=== PATIENT | male | born 1995 | race Caucasian/White ===

== ENCOUNTER 2018-11-21 20:29 | Emergency (ER) | payer OTHER ==
[~2018-11-21] VITALS: Ht 167.6 cm; Wt 76.0 kg
[~2018-11-21 20:29] MED LIST: ACET325T33 PO; ONDA4TAB14 PO
[2018-11-21 20:33] VITALS: BP 123/70; PULSE 76; RESP 18; Ht 167.6 cm; Wt 76.0 kg
[2018-11-21] MEDS ORDERED: ONDANSETRON (ODT) 4 MG TAB ODT STA (21:01)
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
== END 2018-11-21 21:45 | disposition home or self-care (01) ==
LOC: FTE 20:29
DX: G44.309 Post-traumatic headache, unspecified, not intractable (principal); R40.2412 Glasgow coma scale score 13-15, at arrival to emergency department; F07.81 Postconcussional syndrome
CPT/HCPCS: Z7502; Z7610; 99283